=== PATIENT | female | born 1960 | race Caucasian/White ===

== ENCOUNTER 2016-03-14 17:19 | Emergency (ER) | payer MEDICARE, OTHER ==
[2016-03-14 17:36] VITALS: TEMP 99.1
--- NOTE | 2016-03-14 17:55 | ED.PDOC ---
History of Present Illness - General Chief Complaint: Eye Problems Stated Complaint: blood in right eye Time Seen by Provider: 03/14/16 17:52 Source: patient Exam Limitations: no limitations - History of Present Illness Initial Comments: The patient is a 55-year-old female presenting to the emergency room secondary to blood matting around her right eye. It occurred this morning it occurred yesterday. She is not had this problem previously. She has no conjunctivitis. She is not hurting. She did not have any trauma to the eye. She does not work contacts. She has not had any bleeding or bruising problems otherwise. No oral lesions. No genital lesions. Timing/Duration: unsure Severity: mild Improving Factors: nothing Worsening Factors: nothing Allergies/Adverse Reactions: Allergies Morphine Allergy (Verified 03/14/16 17:37) steroids Allergy (Uncoded 03/14/16 17:37) Review of Systems - Review of Systems Constitutional: States: no symptoms reported EENTM: States: see HPI Respiratory: States: no symptoms reported Cardiology: States: no symptoms reported Gastrointestinal/Abdominal: States: no symptoms reported Genitourinary: States: no symptoms reported Musculoskeletal: States: no symptoms reported Skin: States: no symptoms reported Neurological: States: no symptoms reported Endocrine: States: no symptoms reported All other Systems: No Change from Baseline Past Medical History (General) - Patient Medical History Hx of COPD: Yes Hx Congestive Heart Failure: No Hx Hypertension: Yes Hx Diabetes: Yes Hx Cancer: No Hx Hepatitis C: No Surgical History: appendectomy, cholecystectomy, other - Vaccination History 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 Ears, Nose, Throat: hearing grossly normal, normal ENT inspection, normal pharynx Neck: full range of motion, supple Respiratory: chest non-tender, lungs clear, normal breath sounds, no respiratory distress, no accessory muscle use Cardiovascular/Chest: normal peripheral pulses, regular rate, rhythm, no edema Peripheral Pulses: radial,right: 2+, radial,left: 2+ Rectal Exam: deferred Extremity: normal range of motion, normal inspection, no pedal edema, normal capillary refill Neurologic: alert, normal mood/affect, oriented x 3 Skin Exam: normal color Comments: Vital Signs - 24 hr 03/14/16 17:28 Temperature 99.1 F Pulse Rate [ 92 H pulse ox] Respiratory 20 Rate Blood Pressure 168/83 [Left Arm] O2 Sat by Pulse 97 Oximetry Progress - Progress Progress: 03/14/16 17:54 the patient is a 55-year-old female with a small hemangioma to the inside of her upper lateral right eyelid. It is approximately 1 mm in diameter. She needs to follow up with her primary care doctor next week for reevaluation. Systane eyedrops can be used at night. Preservative-free eyedrops can be used otherwise as needed. She will continue her aspirin for now , given her complicated medical history. Departure - Departure Clinical Impression: Hemangioma of eyelid Disposition: Discharge to Home or Self Care Condition: Fair Departure Forms: ED Discharge - Pt. Copy, Patient Portal Self Enrollment Instructions: Hemangioma Diet: regular diet Activity: increase activity as tolerated Referrals: Ryder Ochoa MD [Primary Care Provider] - 1-2 Weeks Additional Instructions: the patient is a 55-year-old female with a small hemangioma to the inside of her upper lateral right eyelid. It is approximately 1 mm in diameter. She needs to follow up with her primary care doctor next week for reevaluation. Systane eyedrops can be used at night. Preservative-free eyedrops can be used otherwise as needed. She will continue her aspirin for now , given her complicated medical history.
[2016-03-14 18:10] VITALS: BP 156/73; O2SAT 95
== END 2016-03-14 18:05 | disposition home or self-care (01) ==
LOC: ER 17:19
DX: D18.09 Hemangioma of other sites (principal); I11.0 Hypertensive heart disease with heart failure; I50.9 Heart failure, unspecified; J44.9 Chronic obstructive pulmonary disease, unspecified; Z88.6 Allergy status to analgesic agent; Z88.8 Allergy status to other drugs, medicaments and biological substances; Z87.891 Personal history of nicotine dependence

== ENCOUNTER 2016-03-15 15:11 | Emergency (ER) | payer MEDICARE, OTHER ==
[2016-03-15 15:43] VITALS: BP 140/77; TEMP 97.6
--- NOTE | 2016-03-15 17:03 | ED.PDOC ---
History of Present Illness - General Chief Complaint: Eye Problems Stated Complaint: bleeding from under eyelid Time Seen by Provider: 03/15/16 15:46 Source: patient, old records - RECORDS REVIEWED FROM YESTERDAYS VISIT Exam Limitations: no limitations Additional Information: PT PRESENTS TO ED WITH COMPLAINTS OF BLEEDING FROM THE RIGHT UPPER EYLID. PT DENIES ANY TRAUMA TO THE EYE OR RECENT SURGERY. PT DENIES ANY VISUAL CHANGES OR PAIN TO THE EYE. PT WAS SEEN IN THE ED LAST NIGHT. BLEEDING STOPPED AND PT WAS TOLD TO FOLLOW UP WITH PCP. PT RETURNS TODAY DUE TO RECURRENT EPISODES THAT COULD NOT BE CONTROLLED AT HOME. - History of Present Illness Timing/Duration: abrupt Severity: moderate EENT Location: eye (R) Improving Factors: nothing Worsening Factors: nothing Associated Symptoms: denies symptoms Allergies/Adverse Reactions: Allergies Morphine Allergy (Verified 03/14/16 17:37) steroids Allergy (Uncoded 03/14/16 17:37) Review of Systems - Review of Systems Constitutional: Denies: chills, fever EENTM: Denies: eye pain, blurred vision, nose congestion, throat pain Respiratory: Denies: cough, short of breath Cardiology: Denies: chest pain, palpitations Past Medical History (General) - Patient Medical History Hx of COPD: Yes Hx Congestive Heart Failure: No Hx Hypertension: Yes Hx Diabetes: Yes Hx Cancer: No Hx Hepatitis C: No Surgical History: appendectomy, cholecystectomy - Vaccination History Hx Influenza Vaccination: No Hx Pneumococcal Vaccination: No - Social History Hx Tobacco Use: Yes Hx Alcohol Use: No - Female History Patient : No Family Medical History - Family History Mother Family History: Unknown Living Status: Unknown Physical Exam - Physical Exam General Appearance: Alert, No apparent distress Eye Exam: right normal, right other - MILD TO MODERATE AMOUNT OF BLEEDING FROM MUCOSAL SURFACE OF LATERAL ASPECT OF UPPER EYELID, NO DEFINITE BLEEDING SOURCE IDENTIFIED. Ear Exam: bilateral ear: auricle normal Nasal Exam: normal inspection Throat Exam: normal mouth inspection Progress - Progress Progress: 03/15/16 17:05 PRESSURE HELD TO LATERAL ASPECT OF RIGHT EYE AND HEMOSTASIS ACHEIVED. WILL CONSULT OPTHALMOLOGY AT [facility] REGARDING PTS PRESENTATION. 03/15/16 17:[address] ARRIAGA(PTS OPTHALMOLOGIST) WHO ADVISED PATCHING THE EYE AND HAVING THE PT FOLLOW UP IN HIS OFFICE TOMORROW AT 9AM. CASE DISCUSSED WITH DR. RIOS ([facility] OPTHALMOLOGIST CARDIOVASCULAR LAB DIRECTOR) WHO ALSO ADVISED PATCHING THE EYE AND RECOMMENDED THAT PT FOLLOW UP WITH HIM. ON RE-EVAL, HEMOSTASIS MAINTAINED. PT INSTRUCTED TO FOLLOW UP WITH OPTHALMOLOGIST OF CHOICE. Departure - Departure Clinical Impression: Hemangioma of eyelid Time of Disposition: 17:36 Disposition: Discharge to Home or Self Care Condition: Good Departure Forms: ED Discharge - Pt. Copy, Patient Portal Self Enrollment Instructions: Hemangioma Diet: resume usual diet Referrals: Ryder Ochoa MD [Primary Care Provider] - 1-2 Weeks
[2016-03-15 18:25] VITALS: O2SAT 98
== END 2016-03-15 18:05 | disposition home or self-care (01) ==
LOC: ER 15:11
DX: D18.09 Hemangioma of other sites (principal); J44.9 Chronic obstructive pulmonary disease, unspecified; I10 Essential (primary) hypertension; E11.9 Type 2 diabetes mellitus without complications; Z88.6 Allergy status to analgesic agent; Z88.8 Allergy status to other drugs, medicaments and biological substances

== ENCOUNTER → 2016-06-28 | Outpatient (CLI) | payer MEDICARE, OTHER | END | disposition home or self-care (01) | LOC: GMAJ 13:56 | DX: K52.89 Other specified noninfective gastroenteritis and colitis (principal); R19.4 Change in bowel habit ==

== ENCOUNTER 2016-07-22 17:31 | Emergency (ER) | payer MEDICARE, MEDICAID ==
--- NOTE | 2016-07-22 17:59 | ED.PDOC ---
History of Present Illness - General Chief Complaint: General Stated Complaint: "left rib pain after working in yard Time Seen by Provider: 07/22/16 17:33 Source: patient Exam Limitations: no limitations - History of Present Illness Initial Comments: The patient is a 56-year-old female presenting to the emergency room secondary to acute onset chest pain to the left lower chest. This occurred while she was working in her yard twisting up weeds. No shortness of breath. It hurts when she twists and turns. The pain goes away when she is still. It is not worse with walking. It is worse with palpation over the area. She felt a pop when it started. No syncope. No back pain. No palpitations. Timing/Duration: momentarily, 1-3 hours Severity: moderate Improving Factors: immobilization Worsening Factors: movement Associated Symptoms: chest pain Allergies/Adverse Reactions: Allergies Morphine Allergy (Verified 07/22/16 17:41) Other Causes itching steroids Allergy (Uncoded 07/22/16 17:41) Unknown Home Medications: Ambulatory Orders Lfyoowzlrszfn-Wagh-Dhlofrhnjc [Fioricet] 1 ea PO Q8H PRN #21 tab 07/22/16 Review of Systems - Review of Systems Constitutional: States: no symptoms reported EENTM: States: no symptoms reported Respiratory: States: no symptoms reported Cardiology: States: see HPI, chest pain Gastrointestinal/Abdominal: States: no symptoms reported Genitourinary: States: no symptoms reported Musculoskeletal: States: no symptoms reported Skin: States: no symptoms reported Neurological: States: no symptoms reported Endocrine: States: no symptoms reported All other Systems: No Change from Baseline Past Medical History (General) - Patient Medical History Hx Seizures: No Hx Stroke: No Hx Dementia: No Hx Asthma: Yes Hx of COPD: Yes Hx Cardiac Disorders: Yes Hx Congestive Heart Failure: No Hx Pacemaker: No Hx Hypertension: Yes Hx Thyroid Disease: No Hx Diabetes: Yes Hx Gastroesophageal Reflux: No Hx Renal Disease: No Hx Cancer: No Hx of HIV: No Hx Hepatitis C: No Hx MRSA: No Surgical History: appendectomy, cholecystectomy, Hysterectomy - Vaccination History Hx Tetanus, Diphtheria Vaccination: Yes Hx Influenza Vaccination: Yes Hx Pneumococcal Vaccination: Yes Immunizations Up to Date: Yes - Social History Hx Tobacco Use: Yes Hx Chewing Tobacco Use: No Hx Alcohol Use: No Hx Substance Use: No Hx Substance Use Treatment: Yes Hx Depression: No Feels Threatened In Home Enviroment: No Feels Threatened In a Relationship: No Hx Physical Abuse: No Hx Emotional Abuse: No Hx Suspected Abuse: No - Female History Patient is a Female of Child Bearing Age (10 -59 yrs old): No Patient : No Family Medical History - Family History Mother Family History: Unknown Living Status: Unknown Physical Exam - Physical Exam General Appearance: Alert, Comfortable, No apparent distress Eye Exam: bilateral normal Ears, Nose, Throat: hearing grossly normal, normal pharynx Neck: full range of motion, supple Respiratory: lungs clear, normal breath sounds, no respiratory distress, no accessory muscle use, other - nterior left chest wall is tender to palpation. No subcutaneousemphysema palpable. No crepitus. 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 She needs to continue to take deep breaths and twist and turn to keep spasming muscles from tightening up. Anti-inflammatory such as Advil or Aleve may help as well as some topical heat. She should anticipate some pain for the next 2-3 weeks. ER warnings were given for any acute worsening. Chest x-ray shows no obvious fracture or pneumothorax. - EKG/XRAY/CT CT Ordered: No CT Interpretation Call Back: No Departure - Departure Clinical Impression: Costochondral chest pain Disposition: Discharge to Home or Self Care Condition: Fair Departure Forms: ED Discharge - Pt. Copy, Patient Portal Self Enrollment Instructions: DI for Atypical Chest Pain Diet: regular diet Activity: increase activity as tolerated Referrals: Ryder Ochoa MD [Primary Care Provider] - 1-2 Weeks Prescriptions: Cbmqzvjrcdvqp-Bmeq-Lainttunbk [Fioricet] 1 ea PO Q8H PRN #21 tab PRN Reason: Pain Home Medications: Ambulatory Orders Yzhvxdfwzanjh-Tntb-Bwnwjwhygg [Fioricet] 1 ea PO Q8H PRN #21 tab 07/22/16 Additional Instructions: the patient is a 56-year-old female presenting with acute chest pain that appears to be musculoskeletal in nature. She needs to continue to take deep breaths and twist and turn to keep spasming muscles from tightening up. Anti-inflammatory such as Advil or Aleve may help as well as some topical heat. She should anticipate some pain for the next 2-3 weeks. ER warnings were given for any acute worsening. Chest x-ray shows no obvious fracture or pneumothorax.
[2016-07-22 18:01] VITALS: BP 137/80; TEMP 99.2; O2SAT 99
--- NOTE | 2016-07-22 18:21 | RAD ---
EXAM: Chest,2 Views CLINICAL INDICATION: 56-year-old female with acute LEFT lower chest pain with movement. TECHNIQUE: Two-view, PA and lateral projections of the chest were obtained. COMPARISON: 06/25/2014. FINDINGS: Stable cardiac and mediastinal silhouette. Heart size is normal. Lungs are clear without focal opacity, pneumothorax or pleural effusions. The visualized bones are within normal limits. IMPRESSION: No acute cardiopulmonary abnormalities. Electronically signed by: Melvi Peterson MD 07/22/2016 6:22 PM CDT Workstation: [id number]
[2016-07-22] MEDS ORDERED: ACETAMINOPHEN-CAFF-BUTALBITAL 1 EA TAB PO SCH (18:30)
== END 2016-07-22 18:13 | disposition home or self-care (01) ==
LOC: ER 17:31
DX: R07.1 Chest pain on breathing (principal); J44.9 Chronic obstructive pulmonary disease, unspecified; I10 Essential (primary) hypertension; E11.9 Type 2 diabetes mellitus without complications; Z88.6 Allergy status to analgesic agent; Z88.8 Allergy status to other drugs, medicaments and biological substances; Z87.891 Personal history of nicotine dependence

== ENCOUNTER 2016-10-05 00:04 | Emergency (ER) | payer MEDICARE, MEDICAID ==
--- NOTE | 2016-10-05 00:26 | ED.PDOC ---
History of Present Illness - General Chief Complaint: Lower Extremity Injury Stated Complaint: twisted ankle/foot Time Seen by Provider: 10/05/16 00:24 Source: patient Exam Limitations: no limitations - History of Present Illness Initial Comments: Padma Roland 56 y/o female stated she was walking stepped on a big rock rolled her right ankle /foot before falling to the ground denies head/neck injuries Occurred: just prior to arrival Pain - Lower Extremity: moderate: Right Ankle, Right Foot Method of Injury: fell, twisted, other - see hpi Improving Factors: immobilization Worsening Factors: movement Allergies/Adverse Reactions: Allergies Morphine Allergy (Verified 07/22/16 17:41) Other Causes itching Prednisone Allergy (Verified 10/05/16 00:35) steroids Allergy (Uncoded 07/22/16 17:41) Unknown Home Medications: Ambulatory Orders Ddmxrgwffyrvq-Wkrf-Qsknndriml [Fioricet] 1 ea PO Q8H PRN #21 tab 07/22/16 Acetamin W/Cod #3 Tab [Tylenol w/CODEINE #3] 2 ea PO TID PRN #20 tab 10/05/16 Albuterol Sulfate Nebs [Proventil Nebs] 2.5 mg INH PRN 10/05/16 Amitriptyline HCl 150 mg PO DAILY 10/05/16 Aspirin [Aspirin Childrens] 81 mg PO DAILY 10/05/16 Carvedilol 6.25 mg PO BID 10/05/16 Dapagliflozin Propanediol [Farxiga] 10 mg PO DAILY 10/05/16 Esomeprazole Magnesium [Nexium] 40 mg PO DAILY 10/05/16 Fluconazole 150 mg PO PRN 10/05/16 Furosemide [Lasix] 40 mg PO PRN 10/05/16 Gabapentin 600 mg PO Q8HRS 10/05/16 Imipramine HCl 10 mg PO PRN 10/05/16 Linagliptin [Tradjenta] 5 mg PO DAILY 10/05/16 Lisinopril 20 mg PO DAILY 10/05/16 Meclizine HCl 25 mg PO PRN 10/05/16 Metformin HCl 1,000 mg PO BID 10/05/16 Nitroglycerin [Nitrostat] 0.4 mg SL PRN 10/05/16 Ondansetron HCl [Zofran] 4 mg PO PRN 10/05/16 Pravastatin Sodium 10 mg PO DAILY 10/05/16 Umeclidinium [place] [Incruse Ellipta] 62.5 mcg IN PRN 10/05/16 Zolpidem Tartrate 10 mg PO BEDTIME 10/05/16 Review of Systems - Review of Systems Constitutional: States: no symptoms reported EENTM: States: no symptoms reported Respiratory: States: see HPI Cardiology: States: no symptoms reported Gastrointestinal/Abdominal: States: no symptoms reported Genitourinary: States: no symptoms reported Musculoskeletal: States: see HPI Past Medical History (General) - Patient Medical History Hx Seizures: No Hx Stroke: No Hx Dementia: No Hx Asthma: Yes Hx of COPD: Yes Hx Cardiac Disorders: Yes Hx Congestive Heart Failure: No Hx Pacemaker: No Hx Hypertension: Yes Hx Thyroid Disease: No Hx Diabetes: Yes Hx Gastroesophageal Reflux: No Hx Renal Disease: No Hx Cancer: No Hx of HIV: No Hx Hepatitis C: No Hx MRSA: No Hx Other PMH: Yes - polyarteritis nodosa Surgical History: cholecystectomy, other - cataract,partial colon resection - Vaccination History Hx Tetanus, Diphtheria Vaccination: Yes Hx Influenza Vaccination: Yes Hx Pneumococcal Vaccination: Yes - Social History Hx Tobacco Use: Yes Hx Chewing Tobacco Use: No Hx Alcohol Use: No Hx Substance Use: No Hx Substance Use Treatment: Yes Hx Depression: No Hx Physical Abuse: No Hx Emotional Abuse: No Hx Suspected Abuse: No - Female History Patient : No Family Medical History - Family History Mother Family History: Unknown Living Status: Unknown Hx Cardiac Disease: Yes - dad/brother Hx Family;Other: rheumatoid arthritis-mom Physical Exam - Physical Exam General Appearance: Alert, Comfortable, No apparent distress Eyes, Ears, Nose, Throat: PERRL/EOMI, normal ENT inspection Neck: non-tender, full range of motion Cardiovascular/Respiratory: regular rate, rhythm, normal peripheral pulses, normal breath sounds Gastrointestinal/Abdominal: non-tender, no organomegaly Back: normal inspection, no CVA tenderness Thigh/Hip: no evidence of injury Leg: non-tender Knee: no evidence of injury Ankle: limited ROM - because of pain right, pain - right, soft tissue tenderness - right Foot: bone tenderness - right, limited ROM - pain right Progress - Progress Progress: 10/05/16 00:44 Vital Signs - 8 hr 10/05/16 00:23 Temperature 99.1 F Pulse Rate [ 115 H left] Respiratory 20 Rate Blood Pressure 147/81 [left] O2 Sat by Pulse 96 Oximetry - EKG/XRAY/CT XRAY: ankle - and foot right-no acute fracture noted Departure - Departure Clinical Impression: Sprain of ankle, calcaneofibular ligament Qualifiers: Encounter type: initial encounter Laterality: right Qualified Code(s): S93.411A - Sprain of calcaneofibular ligament of right ankle, initial encounter Time of Disposition: 00:50 Disposition: Discharge to Home or Self Care Condition: Fair Departure Forms: ED Discharge - Pt. Copy, Patient Portal Self Enrollment Instructions: DI for Ankle Sprain, Ankle Sprain Referrals: Ryder Ochoa MD [Primary Care Provider] - 1-2 Weeks Prescriptions: Acetamin W/Cod #3 Tab [Tylenol w/CODEINE #3] 2 ea PO TID PRN #20 tab PRN Reason: Pain Home Medications: Ambulatory Orders Fplrvjylcrtlv-Vdxn-Uxpxocgfru [Fioricet] 1 ea PO Q8H PRN #21 tab 07/22/16 Acetamin W/Cod #3 Tab [Tylenol w/CODEINE #3] 2 ea PO TID PRN #20 tab 10/05/16 Albuterol Sulfate Nebs [Proventil Nebs] 2.5 mg INH PRN 10/05/16 Amitriptyline HCl 150 mg PO DAILY 10/05/16 Aspirin [Aspirin Childrens] 81 mg PO DAILY 10/05/16 Carvedilol 6.25 mg PO BID 10/05/16 Dapagliflozin Propanediol [Farxiga] 10 mg PO DAILY 10/05/16 Esomeprazole Magnesium [Nexium] 40 mg PO DAILY 10/05/16 Fluconazole 150 mg PO PRN 10/05/16 Furosemide [Lasix] 40 mg PO PRN 10/05/16 Gabapentin 600 mg PO Q8HRS 10/05/16 Imipramine HCl 10 mg PO PRN 10/05/16 Linagliptin [Tradjenta] 5 mg PO DAILY 10/05/16 Lisinopril 20 mg PO DAILY 10/05/16 Meclizine HCl 25 mg PO PRN 10/05/16 Metformin HCl 1,000 mg PO BID 10/05/16 Nitroglycerin [Nitrostat] 0.4 mg SL PRN 10/05/16 Ondansetron HCl [Zofran] 4 mg PO PRN 10/05/16 Pravastatin Sodium 10 mg PO DAILY 10/05/16 Umeclidinium [place] [Incruse Ellipta] 62.5 mcg IN PRN 10/05/16 Zolpidem Tartrate 10 mg PO BEDTIME 10/05/16
--- NOTE | 2016-10-05 00:33 | RAD ---
EXAM DESCRIPTION: Foot,Right 3 Views CLINICAL HISTORY: 56 years ,Female twisted when stepped on rock COMPARISON: None. TECHNIQUE: RIGHT foot, Three view FINDINGS: No acute fractures or dislocations are identified. No osseous destructive lesions. No radiopaque foreign object noted. Small foci of calcification along the third digit and along the head of the fifth metatarsal. No significant ankle effusion noted. IMPRESSION: No acute fracture or dislocation is identified. Electronically signed by: Ni Felix 10/05/2016 12:31 AM CDT
[2016-10-05 00:34] VITALS: O2SAT 96
--- NOTE | 2016-10-05 00:40 | RAD ---
EXAM DESCRIPTION: Ankle,Right 3 Views CLINICAL HISTORY: 56 years Female ,twisted when stepped on rock, edema and swelling medially and laterally COMPARISON: None. TECHNIQUE: Right ankle, 3 view FINDINGS: No acute fractures or dislocations are identified. No osseous destructive lesions. Soft tissue swelling around the ankle. No ankle joint effusion noted. IMPRESSION: No acute fracture is identified. Soft tissue swelling medially and laterally Electronically signed by: Ni Felix 10/05/2016 12:39 AM CDT
[2016-10-05] MEDS ORDERED: HYDROCOD/APAP 10/325 (ER DISP) # 3 tablets PO ONE (00:51)
[2016-10-05 01:09] VITALS: BP 139/78; TEMP 98.9
== END 2016-10-05 01:09 | disposition home or self-care (01) ==
LOC: ER 00:04
DX: S93.411A Sprain of calcaneofibular ligament of right ankle, initial encounter (principal); E11.9 Type 2 diabetes mellitus without complications; J44.9 Chronic obstructive pulmonary disease, unspecified; Z87.891 Personal history of nicotine dependence; Z79.899 Other long term (current) drug therapy; Z79.82 Long term (current) use of aspirin; Z88.6 Allergy status to analgesic agent; Z88.0 Allergy status to penicillin

== ENCOUNTER → 2016-10-09 | Outpatient (CLI) | payer MEDICARE, MEDICAID | END | disposition home or self-care (01) | LOC: GMAJ 15:22 | PROVIDERS: ATTEND Family Medicine | DX: E78.00 Pure hypercholesterolemia, unspecified (principal); I10 Essential (primary) hypertension; E11.9 Type 2 diabetes mellitus without complications ==

== ENCOUNTER → 2016-11-22 | Outpatient (CLI) | payer MEDICARE, MEDICAID ==
--- NOTE | 2016-11-23 16:18 | US ---
EXAM DESCRIPTION: Carotid Duplex: Ultrasound CLINICAL HISTORY: OCCLUSION AND STENOSIS OF RIGHT CAROTID ARTERY COMPARISON: None. TECHNIQUE: Transcutaneous scanning utilizing 2-dimensional and Doppler modes to evaluate the bilateral carotid systems and vertebral arteries. Percentage of diameter of stenosis or no stenosis recorded will be based upon NASCET criteria. FINDINGS: Peak systolic/end diastolic (CM-Sec) CCA Right 96/23 Left 91/35. ICA Right proximal 88/28, mid 82/39. Left proximal 88/31, mid 97/28. Vertebral Right 68/24 Left 53/11. ECA (PS Only) Right 160 left 102. ICA/CCA peak systolic ratio: Right 0.9 Left 0.1 ICA/CCA end diastolic ratio: Right 1.2 Left 0.8 Vertebral arteries: antegrade flow. Comments: Bilateral color turbulent flow with spectral broadening in the CCA bulb and ICAs. Bilateral calcified plaque in the bifurcations. Area stenosis in the right CCA bulb is 36%. Diameter stenosis is 56%. IMPRESSION: 1. Doppler evaluation of the bilateral carotid systems and vertebral arteries shows no hemodynamically significant stenoses. 2. Moderate amount of plaque seen in the carotid arteries bilaterally. Bilateral vertebral arteries showed antegrade-cephalad flow. Electronically signed by: Jose Miguel Andrade MD 11/23/2016 4:17 PM CDT
== END | disposition home or self-care (01) ==
LOC: US 13:05
PROVIDERS: ATTEND Family Medicine
DX: I65.21 Occlusion and stenosis of right carotid artery (principal)

== ENCOUNTER → 2017-02-19 | Outpatient (CLI) | payer MEDICARE, MEDICAID ==
--- NOTE | 2017-02-20 11:32 | MRI ---
EXAM DESCRIPTION: Shoulder,Right: MRI. CLINICAL HISTORY: ROTATOR CUFF TEAR COMPARISON: None. TECHNIQUE: Multiplanar, high-field MRI, multiple sequences, without contrast: Right shoulder. FINDINGS: Fluid signal on the undersurface of the distal supraspinatus tendon just proximal to the critical zone. Fluid signal in the mid and posterior insertion fibers of the soleus tendon associated with the subcortical lesion in the greater tuberosity. Minimal fluid in the subacromion/subdeltoid bursa. Normal signal in the remaining tendons of the rotator cuff. Normal marrow signal elsewhere in the humeral head. Minimal fat in the supraspinatus and infraspinatus muscles. Minimal fluid in the right AC joint with marginal spurs. Minimal downsloping of the lateral acromion. Type II curvature of the lateral acromion. Coracoid ligaments are intact. Minimal effusion in the subcoracoid bursa. Minimal right glenohumeral joint effusion. No subchondral lesions in the humeral head or glenoid. Mid position of the bicipital labral anchor with minimal fluid signal. Also fluid signal in the adjacent labrum. Normal signal in the remainder of the labrum. Normal signal in the long head biceps tendon which is also within the bicipital groove. IMPRESSION: 1. Partial-thickness undersurface tear of the distal supraspinatus tendon and partial-thickness undersurface insertion tear associated with small lesion on the greater tuberosity. Minimal subacromion-subdeltoid bursa effusion. 2. Subcoracoid bursitis. Shape and morphology of the acromion may be contributing to supraspinatus tendon outlet impingement. 3. Partial tear in the bicipital labral anchor also involving the adjacent superior labrum. Electronically signed by: Jose Miguel Andrade MD 02/20/2017 11:30 AM [facility]
== END ==
LOC: MRI 14:00
PROVIDERS: ATTEND Family Medicine
DX: M75.101 Unspecified rotator cuff tear or rupture of right shoulder, not specified as traumatic (principal)

== ENCOUNTER → 2017-03-15 | Outpatient (CLI) | payer MEDICARE, MEDICAID | LOC: RESP 10:31 | PROVIDERS: ATTEND Orthopaedic Surgery | DX: Z01.818 Encounter for other preprocedural examination (principal) ==

== ENCOUNTER 2017-03-27 05:51 | Day surgery (SDC) | payer MEDICARE, MEDICAID ==
--- NOTE | 2017-03-24 14:21 | HP ---
CHIEF COMPLAINT: Benign mass left hand. HISTORY OF PRESENT ILLNESS: Padma is a 56 year-old female with a history of mass in the left palmar region. She had no trauma related to this. She had no penetrating trauma and denies any radiation of pain. She has no neurologic symptoms. Because of the mass and its location which is just proximal to the MCP joint of the third digit, she has requested excision. After discussing the risks, benefits, and alternatives to that, she has given informed consent for that. PAST SURGICAL HISTORY: 1. Cataract removal. CURRENT MEDICATIONS: 1. Lisinopril. 2. Nexium. 3. Metformin. 4. Gabapentin. 5. Hydrocodone. 6. Amitriptyline. 7. Pravastatin. 8. Carvedilol. 9. NovoLog. 10. Lantus. 11. Tradjenta. 12. Farxiga. 13. Imipramine. 14. Aspirin. 15. Furosemide. 16. Odansetron. 17. Meclizine. 18. Nitrostat. 19. Zolpidem. 20. Incruse. 21. Albuterol 22. Fluconazole. 23. Nystatin. 24. Multiple OTC vitamins. ALLERGIES: SHE STATES AN ALLERGY TO PREDNISONE AND MORPHINE. CODE STATUS: FULL CODE. IMMUNIZATIONS: Up to date. FAMILY HISTORY: None pertinent to today's complaint. SOCIAL HISTORY: She does smoke. Does not drink. Uses no illicit drugs. REVIEW OF SYSTEMS: Negative except as indicated in the History of Present Illness. PHYSICAL EXAMINATION: VITAL SIGNS: Blood pressure 132/70, pulse 83. Height 5' 2", weight 192. MENTAL STATUS: The patient is awake, alert, and is able to give a good history and participate in the physical. The patient is oriented to person, place and time. SKIN: Normal tone and turgor. MUSCULOSKELETAL: She has a mass measuring between 5 to 10 mm on the palmar aspect of the hand just proximal to the metacarpal phalangeal joint. She has some pain to palpation over that. There is no erythema. No increased warmth and no evidence of trauma. She has full range of motion of all of the digits. There is no movement with tendon excursion. X-RAYS: X-rays show no evidence of acute bony abnormality. ASSESSMENT: 1. Benign mass of the hand. PLAN: The plan at this point is for excision of the mass. We have discussed the risks, benefits, and alternatives to that with her and she has given informed consent. #[id number] [facility]
[2017-03-27] MEDS ORDERED: LACTATED RINGERS 1,000 ML ONE (05:53)
[2017-03-27] MEDS ORDERED: SODIUM CHL 0.9% 100ML MINI-BAG 100 ML IVPB ONE (05:53)
[2017-03-27] MEDS ORDERED: ceFAZolin SODIUM 1 GM VIAL ONE ×2 (05:54→06:49)
[2017-03-27] MEDS ORDERED: LEVALBUTEROL NEBS 1.25 MG/3 ML VIAL NEB ONE (06:46)
[2017-03-27] MEDS ORDERED: MIDAZOLAM INJ 2 MG/2 ML VIAL ONE ×2 (06:48→07:05)
[2017-03-27] MEDS ORDERED: fentaNYL CITRATE INJ 50 MCG/ML AMP ONE (06:48)
[2017-03-27] MEDS ORDERED: BUPIVACAINE 0.25% INJ 30 ML VIAL INJ ONE (06:49)
[2017-03-27] MEDS ORDERED: VANCOMYCIN HCL INJ 1,000 MG VIAL IVPB ONE (06:49)
[2017-03-27] MEDS ORDERED: LIDOCAINE 1% 50 ML VIAL INJ ONE (06:49)
[2017-03-27 09:04] VITALS: BP 152/92; TEMP 97.5; O2SAT 97
[2017-03-27] MEDS ORDERED: PROPOFOL 200 MG/20 ML VIAL IV ONE (10:00)
[2017-03-27] MEDS ORDERED: METOCLOPRAMIDE HCL INJ 10 MG/2 ML VIAL IV ONE (10:00)
[2017-03-27] MEDS ORDERED: LIDOCAINE 1% 10 ML VIAL INJ ONE (10:00)
--- NOTE | 2017-03-28 10:30 | OP ---
DATE OF PROCEDURE: 03/27/17 PREOPERATIVE DIAGNOSIS: 1. Ganglion cyst of the palm. POSTOPERATIVE DIAGNOSIS: 1. Ganglion cyst of the palm. PROCEDURE: 1. Excision of ganglion cyst. SURGEON: Alan Dale MD. API ARCHITECT: Jose Miguel Singh CST, SA-C. ANESTHESIA: Local with sedation. COMPLICATIONS: None. FINDINGS: Ganglion cyst just proximal to the metacarpophalangeal joint of the third digit. The cyst was arising from the tendon sheath. PROCEDURE: The patient was brought to the Operating Room and placed in the supine position. Sedation was administered and under sterile conditions, local anesthetic was injected into the operative area. The hand was sterilely prepped and draped. An incision was made obliquely across the cyst and blunt dissection was carried down to the cyst. It was taken down to the stalk which obviously had arisen from the tendon sheath. It was transected at its stalk. The cyst was removed in its entirety. The was very thoroughly irrigated and closed with Nylon suture. Sterile dressings were placed and the patient was taken to the Day Surgery Unit. POSTOPERATIVE INSTRUCTIONS: The patient will be doing range of motion of the digits. The patient will followup in the office in two days. #[id number] [facility]
== END 2017-03-27 09:05 | disposition home or self-care (01) ==
LOC: AMB 05:51
PROVIDERS: ATTEND Orthopaedic Surgery
DX: M67.442 Ganglion, left hand (principal); Z88.5 Allergy status to narcotic agent; I10 Essential (primary) hypertension; E11.9 Type 2 diabetes mellitus without complications; K21.9 Gastro-esophageal reflux disease without esophagitis; E66.9 Obesity, unspecified; F17.210 Nicotine dependence, cigarettes, uncomplicated; J44.9 Chronic obstructive pulmonary disease, unspecified; Z88.8 Allergy status to other drugs, medicaments and biological substances; Z79.82 Long term (current) use of aspirin; Z79.4 Long term (current) use of insulin; Z79.899 Other long term (current) drug therapy
CPT/HCPCS: 01810; 26160; 36416; 82948; 88304; 94640; J0690; J2250; J2765; J3010; J3370; J3490; J7050; J7120; J7614

== ENCOUNTER → 2018-03-26 | Outpatient (CLI) | payer MEDICARE, MEDICAID | LOC: GMAJ 17:00 | PROVIDERS: ATTEND Family Medicine | DX: E53.8 Deficiency of other specified B group vitamins (principal); E55.9 Vitamin D deficiency, unspecified ==

== ENCOUNTER 2018-08-20 20:19 | Emergency (ER) | payer MEDICARE, MEDICAID ==
--- NOTE | 2018-08-20 21:08 | CT ---
EXAM DESCRIPTION: Head CLINICAL HISTORY: painless acute loss of vision from right eye COMPARISON: None Available. TECHNIQUE: Contiguous axial images of the brain were obtained without the administration of intravenous contrast. This exam was performed according to our departmental dose-optimization program, which includes automated exposure control, adjustment of the mA and/or kV according to patient size and/or use of iterative reconstruction technique. FINDINGS: There is no acute intracranial hemorrhage or mass effect. Ventricular system is within normal limits. There is adequate aparicio-white matter differentiation. There is no skull fracture. The visualized paranasal sinuses and mastoid air cells are within normal limits. There is atherosclerosis. Optic globes are symmetric bilaterally. IMPRESSION: No acute intracranial abnormalities. Electronically signed by: Eduar Betancur MD 08/20/2018 9:06 PM CDT
--- NOTE | 2018-08-20 21:24 | ED.PDOC ---
History of Present Illness - General Chief Complaint: Headache Stated Complaint: headache, vision problems Time Seen by Provider: 08/20/18 20:27 Source: patient Exam Limitations: no limitations - History of Present Illness Initial Comments: the patient a 58-year-old female presenting to the emergency room secondary to acute painless onset of vision loss in the right eye while she was watching TV tonight. She has had a very mild right-sided headache for the last couple of days. 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 Duarte. No other prodromal symptoms. No effect the left eye. She does have slightly decreased reactivity of the right pupil compared to the left when light is shined in it. She has a good red reflex and the posterior aspect of the eye can be seen fairly well. No impingement of extraocular movements. Again no pain. No trauma. No fever. Timing/Duration: 1/2 hour Severity: severe Improving Factors: nothing Worsening Factors: nothing Associated Symptoms: denies symptoms Allergies/Adverse Reactions: Allergies Morphine Allergy (Verified 07/22/16 17:41) Other Causes itching Prednisone Allergy (Verified 10/05/16 00:35) steroids Allergy (Uncoded 07/22/16 17:41) Unknown Home Medications: Ambulatory Orders Albuterol Sulfate Nebs [Proventil Nebs] 2.5 mg INH PRN 10/05/16 Amitriptyline HCl 150 mg PO DAILY 10/05/16 Aspirin [Aspirin Childrens] 81 mg PO DAILY 10/05/16 Carvedilol 6.25 mg PO BID 10/05/16 Dapagliflozin Propanediol [Farxiga] 10 mg PO DAILY 10/05/16 Esomeprazole Magnesium [Nexium] 40 mg PO DAILY 10/05/16 Fluconazole 150 mg PO PRN 10/05/16 Furosemide [Lasix] 40 mg PO PRN 10/05/16 Gabapentin 600 mg PO Q8HRS 10/05/16 Linagliptin [Tradjenta] 5 mg PO DAILY 10/05/16 Lisinopril 20 mg PO DAILY 10/05/16 Meclizine HCl 25 mg PO PRN 10/05/16 Metformin HCl [Metformin Hydrochloride] 1,000 mg PO BID 10/05/16 Nitroglycerin [Nitrostat] 0.4 mg SL PRN 10/05/16 Ondansetron HCl [Zofran] 4 mg PO PRN 10/05/16 Pravastatin Sodium 10 mg PO DAILY 10/05/16 Umeclidinium [place] [Incruse Ellipta] 62.5 mcg IN PRN 10/05/16 Zolpidem Tartrate 10 mg PO BEDTIME 10/05/16 HYDROcodone 10MG/APAP 325MG [[place] 10/325] 1 ea PO .Q4H PRN 08/20/18 Insulin Aspart [Novolog] See Protocol SC DAILY PRN MDD sliding scale 08/20/18 Insulin Degludec [Tresiba] 10 unit SC DAILY 08/20/18 Review of Systems - Review of Systems Constitutional: States: no symptoms reported EENTM: States: see HPI Respiratory: States: no symptoms reported Cardiology: States: no symptoms reported Gastrointestinal/Abdominal: States: no symptoms reported Genitourinary: States: no symptoms reported Musculoskeletal: States: no symptoms reported Skin: States: no symptoms reported Neurological: States: no symptoms reported All other Systems: No Change from Baseline Past Medical History (General) - Patient Medical History Hx Seizures: No Hx Stroke: Yes - 2008 Hx Dementia: No Hx Asthma: Yes Hx of COPD: Yes Hx Cardiac Disorders: Yes - angina Hx Congestive Heart Failure: No Hx Pacemaker: No Hx Hypertension: Yes Hx Thyroid Disease: No Hx Diabetes: Yes Hx Gastroesophageal Reflux: Yes Hx Renal Disease: No Hx Cancer: No Hx of HIV: No Hx Hepatitis C: No Hx MRSA: No Surgical History: cholecystectomy, colectomy, Hysterectomy - Vaccination History Hx Tetanus, Diphtheria Vaccination: Yes Hx Influenza Vaccination: No Hx Pneumococcal Vaccination: No - Social History Hx Tobacco Use: Yes Hx Chewing Tobacco Use: No Hx Alcohol Use: No Hx Substance Use: No Hx Substance Use Treatment: Yes Hx Depression: No Hx Physical Abuse: No Hx Emotional Abuse: No Hx Suspected Abuse: No - Female History Patient : No Family Medical History - Family History Mother Family History: Unknown Living Status: Unknown Hx Cardiac Disease: Yes - dad/brother Hx Family;Other: rheumatoid arthritis-mom Physical Exam - Physical Exam General Appearance: Alert, No apparent distress Eye Exam: right other - see history of present illness Ears, Nose, Throat: hearing grossly normal, normal ENT inspection Neck: full range of motion, supple Respiratory: lungs clear, normal breath sounds, no respiratory distress, no accessory muscle use Cardiovascular/Chest: normal peripheral pulses, regular rate, rhythm, no edema Peripheral Pulses: radial,right: 2+, radial,left: 2+ Gastrointestinal/Abdominal: non tender, soft Rectal Exam: deferred Extremity: normal range of motion, no pedal edema, normal capillary refill Neurologic: cupola tapper II-XII nml as tested, alert, normal mood/affect, oriented x 3 Skin Exam: normal color Comments: Vital Signs - 24 hr 08/20/18 20:22 Pulse Rate [ 95 H Left Apical] Respiratory 20 Rate Blood Pressure 166/79 [Left Arm] O2 Sat by Pulse 93 L Oximetry Progress - Progress Progress: 08/20/18 21:24 the patient's a 58-year-old female with acute onset vision loss painless in the right eye approximately 20 minutes prior to arrival here. Head CT shows no evidence of any acute pathology of the brain or the globes. Laboratory work is still pending at this time. Dr. Miner, her wheel blocker has been contacted and wants to see her tonight as soon as possible. The patient has agreed to this and is willing to have that direction. I will forward lab work once it is available. The patient is going to the parking lot of his office and will meet him there tonight. - EKG/XRAY/CT CT Ordered: Yes Departure - Departure Clinical Impression: Acute loss of vision Qualifiers: Laterality: right Qualified Code(s): H53.131 - Sudden visual loss, right eye Disposition: Discharge to Home or Self Care Condition: Serious Departure Forms: ED Discharge - Pt. Copy, Patient Portal Self Enrollment Diet: regular diet Activity: increase activity as tolerated Referrals: Ryder Ochoa MD [Primary Care Provider] - 1-2 Weeks Home Medications: Ambulatory Orders Albuterol Sulfate Nebs [Proventil Nebs] 2.5 mg INH PRN 10/05/16 Amitriptyline HCl 150 mg PO DAILY 10/05/16 Aspirin [Aspirin Childrens] 81 mg PO DAILY 10/05/16 Carvedilol 6.25 mg PO BID 10/05/16 Dapagliflozin Propanediol [Farxiga] 10 mg PO DAILY 10/05/16 Esomeprazole Magnesium [Nexium] 40 mg PO DAILY 10/05/16 Fluconazole 150 mg PO PRN 10/05/16 Furosemide [Lasix] 40 mg PO PRN 10/05/16 Gabapentin 600 mg PO Q8HRS 10/05/16 Linagliptin [Tradjenta] 5 mg PO DAILY 10/05/16 Lisinopril 20 mg PO DAILY 10/05/16 Meclizine HCl 25 mg PO PRN 10/05/16 Metformin HCl [Metformin Hydrochloride] 1,000 mg PO BID 10/05/16 Nitroglycerin [Nitrostat] 0.4 mg SL PRN 10/05/16 Ondansetron HCl [Zofran] 4 mg PO PRN 10/05/16 Pravastatin Sodium 10 mg PO DAILY 10/05/16 Umeclidinium [place] [Incruse Ellipta] 62.5 mcg IN PRN 10/05/16 Zolpidem Tartrate 10 mg PO BEDTIME 10/05/16 HYDROcodone 10MG/APAP 325MG [[place] 10/325] 1 ea PO .Q4H PRN 08/20/18 Insulin Aspart [Novolog] See Protocol SC DAILY PRN MDD sliding scale 08/20/18 Insulin Degludec [Tresiba] 10 unit SC DAILY 08/20/18 Additional Instructions: the patient's a 58-year-old female with acute onset vision loss painless in the right eye approximately 20 minutes prior to arrival here. Head CT shows no evidence of any acute pathology of the brain or the globes. Laboratory work is still pending at this time. Dr. Miner, her wheel blocker has been contacted and wants to see her tonight as soon as possible. The patient has agreed to this and is willing to have that direction. I will forward lab work once it is available. The patient is going to the parking lot of his office and will meet him there tonight.
[2018-08-20 21:44] VITALS: BP 147/89; TEMP 98.2; O2SAT 96
== END 2018-08-20 21:44 | disposition home or self-care (01) ==
LOC: ER 20:19
DX: H53.131 Sudden visual loss, right eye (principal); R51 Headache; J44.9 Chronic obstructive pulmonary disease, unspecified; I10 Essential (primary) hypertension; E11.9 Type 2 diabetes mellitus without complications; K21.9 Gastro-esophageal reflux disease without esophagitis; Z87.891 Personal history of nicotine dependence; Z86.73 Personal history of transient ischemic attack (TIA), and cerebral infarction without residual deficits; Z79.899 Other long term (current) drug therapy; Z79.4 Long term (current) use of insulin; Z79.82 Long term (current) use of aspirin; Z88.5 Allergy status to narcotic agent; Z88.8 Allergy status to other drugs, medicaments and biological substances

== ENCOUNTER 2019-06-02 00:18 | Emergency (ER) | payer MEDICARE, MEDICAID ==
[2019-06-02 00:26] VITALS: TEMP 97.4
[2019-06-02] MEDS ORDERED: ONDANSETRON INJ 4 MG/2 ML VIAL IV ONE (00:30)
[2019-06-02] MEDS ORDERED: SODIUM CHLORIDE 0.9% (FLUSH) 10 ML SYG IV PRN (00:30)
[2019-06-02] MEDS ORDERED: SODIUM CHLORIDE 0.9% 1000ML 1,000 ML IVS PRN (00:30)
--- NOTE | 2019-06-02 00:35 | ED.PDOC ---
History of Present Illness - General Chief Complaint: Syncope/Near Syncope Stated Complaint: near syncopal episode, N/V Time Seen by Provider: 06/02/19 00:29 Source: patient, RN notes reviewed, Vital Signs reviewed, EMS notes reviewed, EMS Exam Limitations: no limitations - History of Present Illness Initial Comments: This is a 58-year-old female with history of insulin-dependent diabetes presenting to the emergency department with vomiting, dizziness onset this evening around 1130 while she was in the shower. Denies any syncope. She denies any chest pain or shortness of breath. She denies any suspicious food intake. She denies diarrhea, but states "I feel like I am about to have diarrhea.". No recent traveling. No sick contacts. Multiple episodes of vomiting in route with EMS. D stick 220 in route. Timing/Duration: 1-3 hours Severity: moderate Improving Factors: nothing Worsening Factors: eating Associated Symptoms: nausea/vomiting Allergies/Adverse Reactions: Allergies Morphine Allergy (Verified 07/22/16 17:41) Other Causes itching Prednisone Allergy (Verified 10/05/16 00:35) steroids Allergy (Uncoded 07/22/16 17:41) Unknown Home Medications: Ambulatory Orders Albuterol Sulfate Nebs [Proventil Nebs] 2.5 mg INH PRN 10/05/16 Amitriptyline HCl 150 mg PO BEDTIME 10/05/16 Aspirin [Aspirin Childrens] 81 mg PO DAILY 10/05/16 Carvedilol 6.25 mg PO BID 10/05/16 Dapagliflozin Propanediol [Farxiga] 10 mg PO DAILY 10/05/16 Fluconazole 150 mg PO PRN 10/05/16 Furosemide [Lasix] 40 mg PO PRN 10/05/16 Gabapentin 600 mg PO .6TIMESDAILY 10/05/16 Linagliptin [Tradjenta] 5 mg PO DAILY 10/05/16 Lisinopril 20 mg PO DAILY 10/05/16 Meclizine HCl 25 mg PO PRN 10/05/16 Metformin HCl [Metformin Hydrochloride] 1,000 mg PO BID 10/05/16 Nitroglycerin [Nitrostat] 0.4 mg SL PRN 10/05/16 Ondansetron HCl [Zofran] 4 mg PO PRN 10/05/16 Pravastatin Sodium 10 mg PO DAILY 10/05/16 Umeclidinium [place] [Incruse Ellipta] 62.5 mcg IN PRN 10/05/16 HYDROcodone 10MG/APAP 325MG [[place] 10/325] 1 ea PO QID PRN 08/20/18 Insulin Aspart [Novolog] See Protocol SC DAILY PRN MDD sliding scale 08/20/18 Insulin Degludec [Tresiba] 10 unit SC DAILY 08/20/18 Atorvastatin Calcium [Lipitor] 20 mg PO DAILY 06/02/19 Clopidogrel Bisulfate [Plavix] 75 mg PO DAILY 06/02/19 Omeprazole 40 mg PO QAM 06/02/19 Promethazine Tab [Phenergan Tablet] 25 mg PO Q6H PRN #15 tab 06/02/19 Review of Systems - Review of Systems Constitutional: Denies: chills, fever EENTM: Denies: eye pain, double vision, nose pain, throat pain Respiratory: Denies: orthopnea, short of breath, wheezing Cardiology: Denies: chest pain, edema Gastrointestinal/Abdominal: States: abdominal pain - Due to vomiting only, nausea, vomiting. Denies: diarrhea Genitourinary: Denies: dysuria, hematuria Musculoskeletal: Denies: back pain, joint pain, neck pain Skin: Denies: lesions, rash Neurological: States: other - Dizziness, near syncope. Denies: headache, paresthesia Endocrine: Denies: increased hunger, increased thirst, increased urine Hematologic/Lymphatic: States: no symptoms reported Past Medical History (General) - Patient Medical History Hx Seizures: No Hx Stroke: Yes - 2008 Hx Dementia: No Hx Asthma: Yes Hx of COPD: Yes Hx Cardiac Disorders: Yes - angina Hx Congestive Heart Failure: No Hx Pacemaker: No Hx Hypertension: Yes Hx Thyroid Disease: No Hx Diabetes: Yes Hx Gastroesophageal Reflux: Yes Hx Renal Disease: No Hx Cancer: No Hx of HIV: No Hx Hepatitis C: No Hx MRSA: No Surgical History: noncontributory - Vaccination History Hx Tetanus, Diphtheria Vaccination: Yes Hx Influenza Vaccination: No Hx Pneumococcal Vaccination: No - Social History Hx Tobacco Use: Yes Hx Chewing Tobacco Use: No Hx Alcohol Use: No Hx Substance Use: No Hx Substance Use Treatment: Yes Hx Depression: No Hx Physical Abuse: No Hx Emotional Abuse: No Hx Suspected Abuse: No - Female History Patient : No Family Medical History - Family History Mother Family History: Unknown Living Status: Unknown Hx Cardiac Disease: Yes - dad/brother Hx Family;Other: rheumatoid arthritis-mom Physical Exam - Physical Exam General Appearance: Alert, Anxious Ears, Nose, Throat: normal ENT inspection, normal pharynx Neck: full range of motion, supple Respiratory: lungs clear, normal breath sounds, no respiratory distress, no accessory muscle use Cardiovascular/Chest: normal peripheral pulses, regular rate, rhythm, no edema, no gallop, no JVD, no murmur Peripheral Pulses: dorsalis pedis,right: 2+, dorsalis pedis,left: 2+, posterior tibialis,right: 2+, posterior tibialis,left: 2+ Gastrointestinal/Abdominal: non tender, soft Back Exam: normal inspection, no CVA tenderness, no vertebral tenderness Extremity: normal range of motion, non-tender, normal inspection, no pedal ed frank, no calf tenderness Neurologic: no motor/sensory deficits, alert, normal mood/affect, oriented x 3 Skin Exam: normal color, diaphoresis Progress - Progress Progress: 06/02/19 01:35 Rechecked. No further vomiting in the emergency department. Vital signs remain normal. Patient reports worsening dizziness and persistent nausea. Will give Valium. No focal deficits at this time. 06/02/19 02:37 Rechecked. Patient states now she is developing a headache. Speech remains tana ar, no weakness. She reports paresthesias in both legs, normal pulses in both legs at this time. Will give Toradol/ofirmev. Will get CTA head and neck to rule out posterior circulation stroke 06/02/19 03:48 Recheck. Patient reports persistent headache, nausea resolved. Will give fentanyl x1. She takes hydrocodone at home. Will discharge home with Phenergan. Strict warnings given to return the emergency room for worsening headache, worsening dizziness, syncope, chest pain, fever, shortness of breath, intractable vomiting, or any other concerns. Recommended follow-up with PCP in 2 to 3 days for recheck. MDM: Patient presenting diaphoretic with nausea, vomiting onset 1 hour prior to arrival while taking a shower. No chest pain, no shortness of breath, no syncope. She states that she was dizzy in the shower and reported paresthesias to both legs. She has no motor weakness, good pulses, normal color. She was given multiple doses of antiemetics, nausea improved, but she reported worsening headache so CTA head/neck was ordered and was negative. Differential diagnoses include ACS, CVA, aneurysm, subarachnoid, dehydration, viral versus foodborne gastroenteritis. Aside from slightly elevated glucose, labs reassuring. EKG without acute ischemic changes, troponins negative x2. She has no abdominal pain or tenderness, good distal pulses, very low suspicion for aortic pathology. No evidence of emergent central pathology on neuro exam or CT. Symptoms improving, no indication for admission at this time, will discharge home with plan for follow-up with PCP in 2 to 3 days. - Results/Orders Results/Orders: EKG interpreted by me at 12:23 AM. Sinus rhythm, 96, normal axis, normal intervals, incomplete right bundle branch block, occasional PVCs, no ST segment elevations or depressions. Chest x-ray shows no acute process. 06/02/19 00:30 IV Care:Saline Lock per Protoc QSHIFT Sodium Chloride 0.9% (Flush) [Saline Flush Syringe] 10 ml IV PRN PRN Sodium Chloride 0.9% 1000ML [Ns 1000 ml] 1,000 ml IVS .QD EKG Assessment ONCE EKG STAT URINALYSIS Stat 06/02/19 01:06 Promethazine HCl Inj [Phenergan Inj] 12.5 mg Sodium Chloride 0.9% 50Ml [NS 50ml] 50 ml IVPB ONCE 06/03/19 00:30 EKG STAT Laboratory Results - last 24 hr 06/02/19 06/02/19 06/02/19 00:26 00:26 00:26 WBC 9.9 RBC 5.06 Hgb 15.2 Hct 44.9 MCV 88.8 MCH 30.0 MCHC 33.8 RDW 14.9 H Plt Count 285 MPV 8.1 Absolute Neuts (auto) 4.50 Absolute Lymphs (auto) 4.20 H Absolute Monos (auto) 0.90 H Absolute Eos (auto) 0.20 Absolute Basos (auto) 0.10 Neutrophils % 45.2 Lymphocytes % 42.5 Monocytes % 8.8 Eosinophils % 2.1 Basophils % 1.4 Sodium 138 Potassium 4.0 Chloride 104 Carbon Dioxide 24 Anion Gap 14.0 BUN 12 Creatinine 0.73 BUN/Creatinine Ratio 16.4 Random Glucose 200 H Serum Osmolality 281.1 Calcium 9.4 Total Bilirubin 0.6 Direct Bilirubin 0.1 Indirect Bilirubin 0.5 AST 23 ALT 13 Alkaline Phosphatase 63 Troponin I < 0.02 Serum Total Protein 7.4 Albumin 4.1 Lipase 33 CTA head/neck shows mild atherosclerotic disease, no dissection, no LVO. No evidence of stroke/aneurysm. Departure - Departure Clinical Impression: Dizziness Nausea and vomiting Qualifiers: Vomiting type: unspecified Vomiting Intractability: non-intractable Qualified Code(s): R11.2 - Nausea with vomiting, unspecified Acute headache Qualifiers: Headache type: unspecified Intractability: not intractable Qualified Code(s): R51 - Headache Time of Disposition: 03:45 Disposition: Discharge to Home or Self Care Condition: Good Departure Forms: ED Discharge - Pt. Copy, Patient Portal Self Enrollment Instructions: Dizziness, Nonvertigo, (DC), Nausea and Vomiting, Adult (DC) Referrals: Ryder Ochoa MD [Primary Care Provider] - 1-5 Days Prescriptions: Promethazine Tab [Phenergan Tablet] 25 mg PO Q6H PRN #15 tab PRN Reason: Nausea Home Medications: Ambulatory Orders Albuterol Sulfate Nebs [Proventil Nebs] 2.5 mg INH PRN 10/05/16 Amitriptyline HCl 150 mg PO BEDTIME 10/05/16 Aspirin [Aspirin Childrens] 81 mg PO DAILY 10/05/16 Carvedilol 6.25 mg PO BID 10/05/16 Dapagliflozin Propanediol [Farxiga] 10 mg PO DAILY 10/05/16 Fluconazole 150 mg PO PRN 10/05/16 Furosemide [Lasix] 40 mg PO PRN 10/05/16 Gabapentin 600 mg PO .6TIMESDAILY 10/05/16 Linagliptin [Tradjenta] 5 mg PO DAILY 10/05/16 Lisinopril 20 mg PO DAILY 10/05/16 Meclizine HCl 25 mg PO PRN 10/05/16 Metformin HCl [Metformin Hydrochloride] 1,000 mg PO BID 10/05/16 Nitroglycerin [Nitrostat] 0.4 mg SL PRN 10/05/16 Ondansetron HCl [Zofran] 4 mg PO PRN 10/05/16 Pravastatin Sodium 10 mg PO DAILY 10/05/16 Umeclidinium [place] [Incruse Ellipta] 62.5 mcg IN PRN 10/05/16 HYDROcodone 10MG/APAP 325MG [[place] 10/325] 1 ea PO QID PRN 08/20/18 Insulin Aspart [Novolog] See Protocol SC DAILY PRN MDD sliding scale 08/20/18 Insulin Degludec [Tresiba] 10 unit SC DAILY 08/20/18 Atorvastatin Calcium [Lipitor] 20 mg PO DAILY 06/02/19 Clopidogrel Bisulfate [Plavix] 75 mg PO DAILY 06/02/19 Omeprazole 40 mg PO QAM 06/02/19 Promethazine Tab [Phenergan Tablet] 25 mg PO Q6H PRN #15 tab 06/02/19
[2019-06-02] MEDS ORDERED: PROMETHAZINE HCL INJ 12.5 MG in SODIUM CHLORIDE 0.9% 50ML 50 ML IVPB ONE (01:06)
[2019-06-02] MEDS ORDERED: PROMETHAZINE HCL INJ 25 MG/ML VIAL ONE (01:07)
[2019-06-02] MEDS ORDERED: SODIUM CHLORIDE 0.9% 50ML 50 ML ONE (01:07)
--- NOTE | 2019-06-02 01:14 | RAD ---
CLINICAL HISTORY: vomiting, dizziness, SOB COMPARISON: 07/22/2016. TECHNIQUE: XR CHEST 1 VIEW 06/02/2019 12:30 AM CDT FINDINGS: Cardiac silhouette is normal in size. Lungs are clear without consolidation, atelectasis, mass or edema. There is no pleural effusion. There is no pneumothorax. There are no acute osseous findings. IMPRESSION: Clear lungs. Electronically signed by: Herminio Escobar MD 06/02/2019 1:12 AM CDT
[2019-06-02] MEDS ORDERED: diazePAM INJ 10 MG/2 ML SYG IV ONE (01:39)
[2019-06-02] MEDS ORDERED: KETOROLAC TROMETHAMINE INJ 30 MG/ML VIAL IV ONE (02:17)
[2019-06-02] MEDS ORDERED: ACETAMINOPHEN IV 1000MG 1,000 MG in PREMIX BOTTLE 1 BOTTLE IVPB ONE (02:17)
[2019-06-02] MEDS ORDERED: ACETAMINOPHEN IV 1000MG 100 ML ONE (02:21)
--- NOTE | 2019-06-02 03:40 | CT ---
PROCEDURE: CT Angiography Head and Neck Without and With Intravenous Contrast CLINICAL INDICATION: The patient is 58 years old and is Female; headache, dizziness, intractable nausea TECHNIQUE: Axial computed tomographic angiography images of the head and neck without and with intravenous contrast. This CT exam was performed using one or more of the following dose reduction techniques: automated exposure control, adjustment of the mA and/or kV according to patient size, and/or use of iterative reconstruction technique. MIP reconstructed images were created and reviewed. DLP: 909 mGy*cm COMPARISON: CT head without contrast deviated 08/20/2018. FINDINGS: HEAD: BRAIN: Mild prominence of cerebral sulci and cisterns. Confluent periventricular and subcortical white matter hypodensity. No hemorrhage. VENTRICLES: Unremarkable. No ventriculomegaly. SINUSES: Paranasal sinuses are clear. MASTOID AIR CELLS: Mastoid air cells are well pneumatized. ORBITS: Prior cataract surgery. Globes and orbits are otherwise within normal limits. RIGHT ANTERIOR CEREBRAL ARTERY: Unremarkable. No occlusion or significant stenosis. No aneurysm. RIGHT MIDDLE CEREBRAL ARTERY: Unremarkable. No occlusion or significant stenosis. No aneurysm. RIGHT POSTERIOR CEREBRAL ARTERY: Unremarkable. No occlusion or significant stenosis. No aneurysm. LEFT ANTERIOR CEREBRAL ARTERY: Unremarkable. No occlusion or significant stenosis. No aneurysm. LEFT MIDDLE CEREBRAL ARTERY: Unremarkable. No occlusion or significant stenosis. No aneurysm. LEFT POSTERIOR CEREBRAL ARTERY: Unremarkable. No occlusion or significant stenosis. No aneurysm. BASILAR ARTERY: Unremarkable. No occlusion or significant stenosis. No aneurysm. NECK: RIGHT COMMON CAROTID ARTERY: Unremarkable. No significant stenosis. No dissection or occlusion. RIGHT INTERNAL CAROTID ARTERY: Mild atherosclerotic plaque of the proximal bilateral cervical ICAs. Calcification of the cavernous carotid arteries. No significant stenosis. No dissection or occlusion. RIGHT EXTERNAL CAROTID ARTERY: Unremarkable. No occlusion. RIGHT VERTEBRAL ARTERY: Calcification of the intracranial vertebral arteries. No significant stenosis. No dissection or occlusion. LEFT COMMON CAROTID ARTERY: Unremarkable. No significant stenosis. No dissection or occlusion. LEFT INTERNAL CAROTID ARTERY: See above. LEFT EXTERNAL CAROTID ARTERY: Unremarkable. No occlusion. LEFT VERTEBRAL ARTERY: See above. LUNG APICES: Apical chronic lung changes. HEAD and NECK: BONES/JOINTS: Straightening of cervical lordosis. No acute fracture. No dislocation. SOFT TISSUES: Unremarkable as visualized. No mass. CAROTID STENOSIS REFERENCE USING NASCET CRITERIA: % ICA stenosis = (1 - narrowest ICA diameter/diameter of distal cervical ICA) x 100. Mild - <50% stenosis. Moderate - 50-69% stenosis. Severe - 70-94% stenosis. Near occlusion - 95-99% stenosis. Occluded - 100% stenosis. IMPRESSION: 1. No acute intracranial abnormality. 2. No flow limiting stenosis or large vessel occlusion. 3. 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 4. Cerebral volume loss and chronic small vessel ischemic changes. If persistent clinical concern for acute ischemia, consider MRI brain without contrast for further evaluation. 5. Apical chronic lung changes. Electronically signed by: Usman Alarcon DO 06/02/2019 3:38 AM CDT
[2019-06-02] MEDS ORDERED: fentaNYL CITRATE INJ 50 MCG/ML 2 ML AMP IV ONE (03:48)
[2019-06-02 03:58] VITALS: BP 159/75; O2SAT 92
== END 2019-06-02 03:59 | disposition home or self-care (01) ==
LOC: ER 00:18
DX: R42 Dizziness and giddiness (principal); R11.2 Nausea with vomiting, unspecified; R51 Headache; I10 Essential (primary) hypertension; F17.200 Nicotine dependence, unspecified, uncomplicated; Z86.73 Personal history of transient ischemic attack (TIA), and cerebral infarction without residual deficits; J44.9 Chronic obstructive pulmonary disease, unspecified; Z79.4 Long term (current) use of insulin; Z79.82 Long term (current) use of aspirin; Z79.899 Other long term (current) drug therapy
CPT/HCPCS: 70496; 70498; 71045; 80048; 80076; 81001; 83690; 84484; 85025; 93005; A4216; J1885; J2405; J2550; J3010; J3360; J7030

== ENCOUNTER → 2019-06-13 | Outpatient (CLI) | payer MEDICARE, MEDICAID ==
--- NOTE | 2019-06-13 14:29 | MRI ---
EXAM DESCRIPTION: Brain w/oContrast CLINICAL HISTORY: MIGRAINE 0 COMPARISON: CT head August 20, 2018 TECHNIQUE: Multiplanar, multi sequence MR images of the head are obtained without IV gadolinium contrast using standard imaging protocol. FINDINGS: The midline structures are not displaced. Sulci are age appropriate. The lateral, third, and fourth ventricles are normal in size, shape, and anatomic positioning. Normal aparicio-white differentiation is seen. Normal flow voids are seen in the major intracranial vessels including the dural venous sinuses. There is no evidence of mass, mass effect, hydrocephalus, or acute intracranial hemorrhage. No abnormal extra-axial fluid collections are seen. Several mild linear areas of increased T2/FLAIR signal are seen in the cerebellum bilaterally. Several scattered foci of increased FLAIR/T2 signal in the periventricular white matter and white matter of the centrum semiovale are seen. The largest in the right parietal centrum semiovale measures 5 mm with subtle increased signal on diffusion-weighted sequences. At least 2 small 2 to 3 mm focal areas of increased signal on diffusion-weighted sequences are seen in the right periventricular white matter and medial right parietal periventricular white matter. No associated decreased signal on ADC mapping. Fusion weighted image 8 of series 304 shows small 4 mm focus of increased signal in the left mid cerebellum with question of decreased signal on ADC mapping image 8 of series 303. Gradient echo images show no abnormal signal. The pituitary is unremarkable. Visualized paranasal sinuses are unremarkable. The visualized mastoid air cells are unremarkable. Asymmetric increased FLAIR signal in the right ocular globe compared to the left is seen with curvilinear area of decreased signal in the inferior right ocular globe on T2 images. This finding suggests possible retinal detachment or other intraocular pathology versus imaging artifact. IMPRESSION: Age-appropriate atrophy. Scattered mild areas of linear increased FLAIR/T2 signal in the cerebellum right greater than left likely represent areas of old infarct or ischemia. At least 3 areas of increased signal on diffusion-weighted sequences with corresponding increased FLAIR/T2 signal, but without ADC mapping signal abnormality could represent areas of subacute ischemia in the right MCA distribution. The largest is seen in the right parietal lobe periventricular white matter. Small focus of probable subacute ischemia in the left superior cerebellum is seen. Given findings in the right cerebral hemisphere and left cerebellum, consider embolic source from the aortic arch or heart. Electronically signed by: Patrick Tyler MD 06/13/2019 2:28 PM CDT
== END ==
LOC: MRI 14:00
PROVIDERS: ATTEND Family Medicine
DX: G43.001 Migraine without aura, not intractable, with status migrainosus (principal); G93.9 Disorder of brain, unspecified

== ENCOUNTER → 2019-06-27 | Outpatient (CLI) | payer MEDICARE, MEDICAID | DX: I63.549 Cerebral infarction due to unspecified occlusion or stenosis of unspecified cerebellar artery (principal) ==

== ENCOUNTER → 2019-08-18 | Outpatient (CLI) | payer MEDICARE, MEDICAID | LOC: NC 12:21 | PROVIDERS: ATTEND Family Medicine | DX: E11.42 Type 2 diabetes mellitus with diabetic polyneuropathy (principal); E78.00 Pure hypercholesterolemia, unspecified ==

== ENCOUNTER 2019-10-16 16:46 | Inpatient (IN) | payer MEDICARE, MEDICAID ==
--- NOTE | 2019-10-16 16:48 | HP ---
SUPERVISING PHYSICIAN: Keysha Corral MD CHIEF COMPLAINT: Lower leg pain. HISTORY OF PRESENT ILLNESS: This is a 59-year-old female patient who has had some lower extremity pain over the last week or so. She has a significant history of chronic obstructive pulmonary disease, diabetes mellitus and continues to smoke at least one pack of cigarettes daily. She saw her primary care physician several days ago and he actually put her on doxycycline. She called him yesterday and said it was worsening and instead of being just on the top of her left foot, it was now going up toward the ankle. Today, she called him and said the redness on her left leg went up to mid figueroa area. She also said it had become redder on her right foot. Yesterday, her CBC was within normal limits and she had an ESR of 16. Because it had worsened and she was having a lot of pain, Dr. Ochoa called me and she was directly admitted to the hospital. Initial vital signs were temperature 98.4, heart rate 97, blood pressure 118/69, respiratory rate 17, O2 saturation 94% on room air. She did drop down to 92% on 2 liters nasal cannula. Her CBC today was unremarkable with an ESR of 15 and her chemistry was unremarkable, but she did have a 4.5 C- reactive protein. Urinalysis showed 50 of urine glucose with a trace of intact urine blood. Chest x-ray showed no acute cardiopulmonary process. She was admitted in stable condition and lab work was ordered. She was put on vancomycin and Zosyn. She will be given fluids overnight. PAST MEDICAL HISTORY: 1. Chronic obstructive pulmonary disease. 2. Type 2 diabetes mellitus. 3. Gastroesophageal reflux disease. 4. Hypertension. 5. Osteoarthritis. 6. CVA in 2009 with mild right hemiparesis. 7. Epilepsy. 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 PAST SURGICAL HISTORY: 1. Appendectomy. 2. Cholecystectomy. 3. Hysterectomy with bilateral salpingo-oophorectomy. 4. Colon resection, partial for bowel infarction. 5. Bilateral cataract removal. OUTPATIENT MEDICATIONS: Per the EMR and awaiting verification. ALLERGIES: MORPHINE, PREDNISONE. FAMILY HISTORY: Positive for coronary artery disease, hypertension. SOCIAL HISTORY: She lives in [place]. She smokes one pack of cigarettes daily and has for many years since she was a teenager. She drinks alcohol occasionally on a social basis. She denies any illicit drug use. REVIEW OF SYSTEMS: GENERAL: Negative for fever, fatigue or weight changes. HEENT: Negative for sinus symptoms, ear pain, vision changes or sore throat. RESPIRATORY: Negative for wheezing, coughing or shortness of breath. CARDIAC: Negative for chest pain, palpitations or tachycardia. GASTROINTESTINAL: Negative for nausea, vomiting, diarrhea. GENITOURINARY: Negative for hematuria, dysuria or polyuria. MUSCULOSKELETAL: As per history of present illness. SKIN: As per history of present illness. NEUROLOGIC: Negative for headache, weakness or any recent seizure activity. PHYSICAL EXAMINATION: VITAL SIGNS: Temperature 98.2, heart rate 98, blood pressure 149/91, respiratory rate 18, O2 saturation 92% on 2 liter nasal cannula. GENERAL: This is a 59-year-old female patient who looks older than her stated age. HEENT: Normocephalic, atraumatic. Pupils are equal and reactive. She is edentulous. Oropharynx is clear. NECK: Supple without mass. RESPIRATORY: Somewhat diminished throughout, but otherwise clear to auscultation. CARDIOVASCULAR: Regular rate and rhythm. GASTROINTESTINAL: Abdomen is soft, nondistended, nontender. Bowel sounds are positive. GENITOURINARY: Deferred. BACK: Deferred. EXTREMITIES: There is erythema on her left lower leg that extends up to the mid portion of her leg. It is warm to the touch. There is no drainage noted. Her right foot has some erythema across the top of the foot that extends to the ankle. It is also warm to the touch, but much less swollen. Pedal pulse on the left is +1 and palpable. Pedal pulse on the right is +2 and palpable. NEUROLOGIC: Awake, alert and oriented times three. LABORATORY: Labs and films are as per history of present illness. IMPRESSION: 1. Cellulitis of bilateral lower extremities with left lower extremity worse than the right. There are also concerns for sepsis. CRP is 4.5 and her heart rate has been 94 to 100. She failed outpatient treatment and has been on Bactrim and doxycycline prior to admission. 2. Diabetes mellitus, poorly controlled. 3. Chronic obstructive pulmonary disease without exacerbation in a current long-time smoker. 4. Gastroesophageal reflux disease. 5. Epilepsy. 6. History of Guillain-[place] syndrome. 7. Hypertension. PLAN: Her home medications will be restarted as soon as they are verified. I will put her on a proton pump inhibitor for ulcer prophylaxis. She refused Lovenox, so I have ordered SCDs and she has been walking frequently. We will elevated her leg. Continue on the vancomycin and Zosyn. We will monitor cultures although they may not be indicative of the actual problem as she has been on antibiotics for several days. Smoking cessation has been strongly encouraged and she was educated on smoking being detrimental to healing. I will repeat her labs in the morning. I have also ordered bilateral ultrasound of arteries. #[id number] [facility]
[2019-10-16] MEDS ORDERED: ONDANSETRON INJ 4 MG/2 ML VIAL IV PRN (17:06)
[2019-10-16] MEDS ORDERED: SODIUM CHLORIDE 0.9% (FLUSH) 10 ML SYG IV PRN (17:06)
[2019-10-16] MEDS ORDERED: ALBUTEROL SULFATE 2.5 MG/3 ML VIAL NEB PRN (17:06)
[2019-10-16] MEDS ORDERED: ACETAMINOPHEN 325 MG TAB PO PRN (17:06)
[2019-10-16] MEDS ORDERED: DEXTROSE 50% 25 GM/50 ML SYG IV PRN (17:10)
[2019-10-16] MEDS ORDERED: GLUCAGON INJ 1 MG VIAL SUBCU PRN (17:10)
[2019-10-16] MEDS ORDERED: PIPERACILLIN/TAZOBACTAM 3.375 GM in SODIUM CHLORIDE 0.9% 100ML 100 ML IVPB ONE (17:11)
[2019-10-16] MEDS ORDERED: VANCOMYCIN PER PHARMACY IVPB SCH (17:30)
[2019-10-16] MEDS ORDERED: IV SET AND CAP CHANGE INJ INJ SCH (17:30)
[2019-10-16] MEDS ORDERED: SODIUM CHL 0.9% 100ML MINI-BAG 100 ML IVPB ONE (18:13)
[2019-10-16] MEDS ORDERED: PIPERACILLIN/TAZOBACTAM 3.375 GM VIAL IVPB ONE (18:13)
--- NOTE | 2019-10-16 18:15 | RAD ---
EXAM: XR Chest, 1 View CLINICAL HISTORY: The patient is 59 years old and is Female; smoker TECHNIQUE: Frontal view of the chest. COMPARISON: Chest radiograph June 02, 2019 FINDINGS: LUNGS: Unremarkable. No consolidation. PLEURAL SPACE: Unremarkable. No pneumothorax. HEART: Unremarkable. No cardiomegaly. MEDIASTINUM: Unremarkable. BONES/JOINTS: Unremarkable. IMPRESSION: No acute cardiopulmonary process. Electronically signed by: Amna Mejias MD 10/16/2019 6:13 PM CDT
[2019-10-16] MEDS ORDERED: ENOXAPARIN SODIUM 40 MG/0.4 ML SYG SUBCU ONE (19:08)
[2019-10-16] MEDS: IPRATROPIUM/ALBUTEROL 3 ML VIAL INH SCH (19:50)
[2019-10-16] MEDS: SODIUM CHLORIDE 0.9% (FLUSH) 10 ML SYG IV SCH (20:45)
[2019-10-16] MEDS ORDERED: NON-FORMULARY MEDICATION 1 EA MIS (Amitriptyline Hcl [Amitriptyline Hcl] 150 MG) PO SCH (20:55)
[2019-10-16] MEDS: INSULIN LISPRO 100 UNITS/ML PEN SUBCU SCH (20:55)
[2019-10-16] MEDS ORDERED: ZOLPIDEM TARTRATE 10 MG TAB PO PRN (20:55)
[2019-10-16] MEDS ORDERED: MECLIZINE HCL 12.5 MG TAB PO PRN (20:55)
[2019-10-16] MEDS ORDERED: NYSTATIN POWDER 15GM BTTL TOP PRN ×2 (20:55)
[2019-10-16] MEDS ORDERED: NON-FORMULARY MEDICATION 1 EA MIS (Carvedilol [Carvedilol] 6.25 MG) PO SCH (20:56)
[2019-10-16] MEDS ORDERED: ATORVASTATIN 20 MG TAB PO SCH (20:56)
[2019-10-16] MEDS ORDERED: GABAPENTIN 1200 MG PO SCH (20:57)
[2019-10-16] MEDS ORDERED: ENOXAPARIN SODIUM 40 MG/0.4 ML SYG SUBCU SCH (21:00)
[2019-10-16] MEDS ORDERED: metFORMIN HCL 500 MG TAB PO SCH (21:00)
[2019-10-16] MEDS ORDERED: CARVEDILOL 3.125 MG TAB ONE (21:12)
[2019-10-16] MEDS ORDERED: AMITRIPTYLINE HCL 25 MG TAB ONE (21:12)
[2019-10-16] MEDS ORDERED: GABAPENTIN 400 MG CAP ONE (21:13)
[2019-10-16] MEDS: HYDROcodone 10MG/APAP 325MG 1 EA TAB PO PRN (21:19)
[2019-10-17] MEDS: PANTOPRAZOLE SODIUM IV 40 MG VIAL IV SCH (06:02)
[2019-10-17] MEDS: INSULIN LISPRO 100 UNITS/ML PEN SUBCU SCH ×4 (07:10→21:32)
[2019-10-17] MEDS ORDERED: IPRATROPIUM/ALBUTEROL 3 ML VIAL NEB ONE (08:05)
[2019-10-17] MEDS: IPRATROPIUM/ALBUTEROL 3 ML VIAL INH SCH ×4 (08:22→20:45)
[2019-10-17] MEDS: GABAPENTIN 400 MG CAP PO SCH ×2 (08:45→16:12)
[2019-10-17] MEDS: metFORMIN HCL 500 MG TAB PO SCH ×2 (08:45→16:12)
[2019-10-17] MEDS: CLOPIDOGREL 75 MG TAB PO SCH (08:46)
[2019-10-17] MEDS: CARVEDILOL 3.125 MG TAB PO SCH ×2 (08:46→16:11)
[2019-10-17] MEDS: PIPERACILLIN/TAZOBACTAM 3.375 GM in SODIUM CHLORIDE 0.9% 100ML 100 ML IVPB SCH ×3 (08:46→19:19)
[2019-10-17] MEDS: LISINOPRIL 10 MG TAB PO SCH (08:46)
[2019-10-17] MEDS: SODIUM CHLORIDE 0.9% (FLUSH) 10 ML SYG IV SCH ×2 (08:47→20:35)
[2019-10-17] MEDS: HYDROcodone 10MG/APAP 325MG 1 EA TAB PO PRN ×3 (09:08→23:17)
[2019-10-17] MEDS: VANCOMYCIN HCL INJ 1,000 MG, VANCOMYCIN HCL INJ 250 MG in SODIUM CHLORIDE 0.9% 250ML 25... IVPB SCH ×2 (09:58→20:35)
[2019-10-17] MEDS: GABAPENTIN 300 MG CAP PO SCH ×2 (11:49→15:00)
--- NOTE | 2019-10-17 13:19 | US ---
EXAM DESCRIPTION: Extremity,Lower Tamir Arteries: Ultrasound. CLINICAL HISTORY: cellulitis COMPARISON: None. TECHNIQUE: Doppler evaluation of the bilateral lower extremity arterial flow waveforms and velocities. FINDINGS: Arterial waveforms in the right lower extremity are all multiphasic.. Arterial waveforms in the left lower extremity are all multiphasic.. Comments: Left [employer] waveform was almost monophasic. Due to velocity in the left below-knee arterial systems than the right. IMPRESSION: Doppler ultrasound of the bilateral lower extremity arterial system shows no evidence of significant atherosclerotic occlusive disease.. Electronically signed by: Jose Miguel Andrade MD 10/17/2019 1:17 PM CDT
[2019-10-17] MEDS: INSULIN GLARGINE 10 UNIT SUBCU SCH (15:10)
[2019-10-17] MEDS: (Dapagliflozin Propanediol [Farxiga] 10 MG) PO SCH (15:12)
[2019-10-17] MEDS: LINAGLIPTIN 5 MG TAB PO SCH (15:13)
[2019-10-17] MEDS ORDERED: AMITRIPTYLINE HCL 25 MG TAB PO SCH (17:00)
[2019-10-17] MEDS ORDERED: ATORVASTATIN 20 MG TAB PO ONE (19:15)
[2019-10-17] MEDS ORDERED: ATORVASTATIN 20 MG TAB PO SCH (21:00)
[2019-10-18] MEDS: PIPERACILLIN/TAZOBACTAM 3.375 GM in SODIUM CHLORIDE 0.9% 100ML 100 ML IVPB SCH ×2 (01:23→09:14)
[2019-10-18] MEDS: PANTOPRAZOLE SODIUM IV 40 MG VIAL IV SCH (05:52)
[2019-10-18] MEDS: CLOPIDOGREL 75 MG TAB PO SCH (08:43)
[2019-10-18] MEDS: GABAPENTIN 400 MG CAP PO SCH (08:43)
[2019-10-18] MEDS: LINAGLIPTIN 5 MG TAB PO SCH (08:43)
[2019-10-18] MEDS: metFORMIN HCL 500 MG TAB PO SCH (08:43)
[2019-10-18] MEDS: CARVEDILOL 3.125 MG TAB PO SCH (08:44)
[2019-10-18] MEDS: LISINOPRIL 10 MG TAB PO SCH (08:44)
[2019-10-18] MEDS: HYDROcodone 10MG/APAP 325MG 1 EA TAB PO PRN (08:48)
[2019-10-18] MEDS: (Dapagliflozin Propanediol [Farxiga] 10 MG) PO SCH (09:00)
[2019-10-18] MEDS: INSULIN GLARGINE 10 UNIT SUBCU SCH (09:03)
[2019-10-18] MEDS: INSULIN LISPRO 100 UNITS/ML PEN SUBCU SCH (09:04)
[2019-10-18] MEDS: SODIUM CHLORIDE 0.9% (FLUSH) 10 ML SYG IV SCH (09:14)
--- NOTE | 2019-10-18 09:14 | PN ---
SUPERVISING PHYSICIAN: Sourav Corral M.D. DATE: 10/17/19 SUBJECTIVE: The patient is up walking in the halls. She says she feels quite a bit better and the swelling in her foot has decreased. Denies chest pain, nausea or vomiting. OBJECTIVE: VITAL SIGNS: Temperature 97.8, heart rate 81, blood pressure 138/71, respiratory rate 18, O2 saturation 94% on 2 liters nasal cannula. RESPIRATORY: Essentially clear to auscultation bilaterally. CARDIAC: Regular rate and rhythm. EXTREMITIES: The edema and erythema on her left foot have decreased significantly. Most of the erythema is limited to the top of her foot and slightly distal to her ankle. There is much less warmth and edema than yesterday. Her bilateral pedal pulses are palpable at +2. The erythema to her right foot is almost gone. NEUROLOGIC: She is awake, alert and oriented times three. LABORATORY: WBCs are 5.6, hemoglobin 13.3, hematocrit 40.7. Chemistry shows electrolytes are basically within normal limits. Hemoglobin A1c is 7.1. Liver enzymes are unremarkable. Preliminary blood cultures show no growth. RADIOLOGY: Lower extremity arterial ultrasound shows Doppler ultrasound of the bilateral lower extremity arterial system shows no evidence of significant atherosclerotic or occlusive disease. All other labs and films have been reviewed via the EMR. ASSESSMENT: 1. Cellulitis of bilateral lower extremities with left lower extremity worse than the right. There are also concerns for sepsis. CRP is 4.5 and her heart rate has been 94 to 100. She failed outpatient treatment and has been on Bactrim and doxycycline prior to admission. 2. Diabetes mellitus, poorly controlled. 3. Chronic obstructive pulmonary disease without exacerbation in a current long-time smoker. 4. Gastroesophageal reflux disease. 5. Epilepsy. 6. History of Guillain-[place] syndrome. 7. Hypertension. PLAN: The patient was quite upset with nursing and her care earlier. She thought she was only getting antibiotics once daily. I showed her her schedule of antibiotics and told her that she was free to go if she felt that she was not getting the care she deserved. She has been somewhat unsupportive and uncooperative with the nursing staff, but has agreed to stay overnight since her foot has improved greatly. She is continuing to go outside to smoke and I discussed with her that her noncompliance was not helping her prognosis, but at this point she said she would continue to smoke. We discussed smoking cessation at length and I have ordered some labs for in the morning. Hopefully she can be discharged home. I discussed her case with Dr. Ochoa and he felt that she could go home on the antibiotics that had previously been ordered, which are doxycycline and Bactrim. She already has a followup appointment with Dr. Ochoa next week on Sunday. Will continue to monitor closely and follow as needed. #[id number] [facility]
[2019-10-18] MEDS: IPRATROPIUM/ALBUTEROL 3 ML VIAL INH SCH ×2 (09:15→12:46)
[2019-10-18] MEDS: VANCOMYCIN HCL INJ 1,000 MG, VANCOMYCIN HCL INJ 250 MG in SODIUM CHLORIDE 0.9% 250ML 25... IVPB SCH (10:15)
[2019-10-18 10:28] VITALS: O2SAT 97
[2019-10-18 13:13] VITALS: BP 165/91; TEMP 97.3
--- NOTE | 2019-10-18 21:51 | DS ---
SUPERVISING PHYSICIAN: Sourav Corral M.D. ADMISSION DIAGNOSIS: 1. Cellulitis of bilateral lower extremities with left lower extremity worse than the right. There are also concerns for sepsis. CRP is 4.5 and her heart rate has been 94 to 100. She failed outpatient treatment and has been on Bactrim and doxycycline prior to admission. 2. Diabetes mellitus, poorly controlled. 3. Chronic obstructive pulmonary disease without exacerbation in a current long-time smoker. 4. Gastroesophageal reflux disease. 5. Epilepsy. 6. History of Guillain-[place] syndrome. 7. Hypertension. DISCHARGE DIAGNOSIS: 1. Sepsis secondary to bilateral lower extremity cellulitis showing improvement with fluids and treatment. 2. Diabetes mellitus, poorly controlled contributing to #1. 3. Chronic obstructive pulmonary disease without exacerbation in a current long-time smoker complicating #1. 4. Gastroesophageal reflux disease. 5. Epilepsy. 6. History of Guillain-[place] syndrome. 7. Hypertension. REASON FOR HOSPITALIZATION: This is a 59-year-old female patient who has had some lower extremity pain over the last week or so. She has a significant history of chronic obstructive pulmonary disease, diabetes mellitus and continues to smoke at least one pack of cigarettes daily. She saw her primary care physician several days ago and he actually put her on doxycycline. She called him yesterday and said it was worsening and instead of being just on the top of her left foot, it was now going up toward the ankle. Today, she called him and said the redness on her left leg went up to mid figueroa area. She also said it had become redder on her right foot. Yesterday, her CBC was within normal limits and she had an ESR of 16. Because it had worsened and she was having a lot of pain, Dr. Ochoa called me and she was directly admitted to the hospital. Initial vital signs were temperature 98.4, heart rate 97, blood pressure 118/69, respiratory rate 17, O2 saturation 94% on room air. She did drop down to 92% on 2 liters nasal cannula. Her CBC today was unremarkable with an ESR of 15 and her chemistry was unremarkable, but she did have a 4.5 C- reactive protein. Urinalysis showed 50 of urine glucose with a trace of intact urine blood. Chest x-ray showed no acute cardiopulmonary process. She was admitted in stable condition and lab work was ordered. She was put on vancomycin and Zosyn. She will be given fluids overnight. LABORATORY STUDIES: White count on discharge was 5,200, hemoglobin 13.1, hematocrit 39.0, platelet count 207,000. Differential showed to be without a left shift. EST was showing elevated at 40. Chemistries showed normal electrolytes, creatinine 0.72. Blood sugar ranged between 105 and 149. Liver functions were all within normal limits. Magnesium and calcium was normal. C reactive protein was elevated at 4.5 on admission and after initiation of treatment prior to discharge was down to 1.0. MICROBIOLOGY: Blood cultures showed no growth at 24 hours. RADIOLOGY: Chest x-ray on admission per radiology interpretation showed no acute cardiopulmonary disease. Lower extremity ultrasound of bilateral arteries showed bilateral lower extremity arterial system showed no evidence of significant atherosclerotic occlusive disease. HOSPITAL COURSE: Ms. Roland was admitted as noted above for cellulitis of the lower extremities. She was started on antibiotic therapy, including Zosyn and Vancomycin. Kidney function remained stable. Her assessment was showing improvement of the bilateral lower extremities and areas of cellulitis compared to admission. The patient had shown clinical improvement. She continued to go outside and smoke despite requests not to do so. It was felt that she could continue with outpatient management with oral antibiotics to include doxycycline and Bactrim that was started prior to her hospitalization. PLAN: Ms. Roland was discharged on 10/18/19 with instructions to followup with Dr. Ochoa next week as scheduled which I believe is by Telemedicine. She is to resume her previous antibiotic therapy with doxycycline and Bactrim. I did actually give her a prescription for an additional 5 days. She was not very clear to the fact of what she had available at home. She was encouraged to keep her legs elevated as much as she could and again extensively educated on the risk of smoking and given smoking cessation education. She was told to return to the Emergency Department as needed. Diet was diabetic diet as tolerated. Activity is again to remain off her feet as much as possible and keep her legs elevated. Medications prescribed on discharge included: 1. Bactrim DS twice daily, prescription written for 7 days. 2. Doxycycline Vibramycin 100 mg twice daily, #14. She was to resume her medications that were started prior to hospitalization, but if she did not have enough medications she was told to get those filled and start those in the morning. Condition on discharge was stable and improved. DISPOSITION: The patient was discharged home. [facility][id number] [facility]
== END 2019-10-18 12:50 | disposition home or self-care (01) | DRG 872 ==
LOC: MS 16:46
PROVIDERS: ADMIT Nurse Practitioner Acute Care; ATTEND Nurse Practitioner Family
DX: A41.9 Sepsis, unspecified organism (principal); L03.115 Cellulitis of right lower limb; L03.116 Cellulitis of left lower limb; I69.351 Hemiplegia and hemiparesis following cerebral infarction affecting right dominant side; E11.9 Type 2 diabetes mellitus without complications; J44.9 Chronic obstructive pulmonary disease, unspecified; F17.210 Nicotine dependence, cigarettes, uncomplicated; K21.9 Gastro-esophageal reflux disease without esophagitis; G40.909 Epilepsy, unspecified, not intractable, without status epilepticus; I10 Essential (primary) hypertension; M19.90 Unspecified osteoarthritis, unspecified site; Z90.49 Acquired absence of other specified parts of digestive tract; Z88.3 Allergy status to other anti-infective agents; Z88.5 Allergy status to narcotic agent; Z91.19 Patient's noncompliance with other medical treatment and regimen; Z79.4 Long term (current) use of insulin; Z79.899 Other long term (current) drug therapy

== ENCOUNTER → 2019-12-26 | Outpatient (CLI) | payer MEDICARE, MEDICAID | LOC: NC 10:10 | PROVIDERS: ATTEND Family Medicine | DX: E11.42 Type 2 diabetes mellitus with diabetic polyneuropathy (principal) ==